=== PATIENT | female | born 1965 | race Caucasian/White ===

== ENCOUNTER 2018-11-19 02:12 | Emergency (ER) | payer SELFPAY ==
[~2018-11-19] VITALS: Ht 170.2 cm; Wt 72.0 kg
[2018-11-19 02:18] VITALS: BP 154/101
== END 2018-11-19 08:42 | disposition left against medical advice (07) ==
LOC: ER 02:12
DX: F10.129 Alcohol abuse with intoxication, unspecified (principal); Y90.9 Presence of alcohol in blood, level not specified; Z53.21 Procedure and treatment not carried out due to patient leaving prior to being seen by health care provider